=== PATIENT | male | born 1960 | race Caucasian/White ===

== ENCOUNTER 2018-03-07 09:02 | Day surgery (SDC) | payer BC ==
[2018-03-02 10:09] LABS: BASOPHILS % (AUTO) 0.3 % (0-1); LYMPHOCYTES # (AUTO) 1.9 X10'3 (1.1-4.8); LYMPHOCYTES % (AUTO) 38.7 % (21-51); MEAN CORPUSCULAR HEMOGLOBIN 30.8 PG (27.0-31.0); MEAN CORPUSCULAR HGB CONC 34.2 % (33.0-36.5); MEAN CORPUSCULAR VOLUME 90.1 FL (78-98); MONOCYTES # (AUTO) 0.4 X10'3 (0-0.9); MONOCYTES % (AUTO) 7.3 % (2-12); NEUTROPHILS # (AUTO) 2.5 X10'3 (1.8-7.7); NEUTROPHILS % (AUTO) 52.7 % (42-75); PRE OP HEMATOCRIT 44.6 % (42.0-52.0); PRE OP HEMOGLOBIN 15.2 g/dL (14.0-17.9); PRE OP PLATELET COUNT 202 X10'3 (140-440); RED BLOOD COUNT 4.95 X10'6 (4.70-6.10); RED CELL DISTRIBUTION WIDTH 12.7 % (11.5-14.5)
[2018-03-02 10:21] LABS: ALBUMIN 3.8 G/DL (3.4-5.0); ALBUMIN/GLOBULIN RATIO 1.2 (1.1-1.5); ALKALINE PHOSPHATASE 74 IU/L (46-116); BLOOD UREA NITROGEN 19 MG/DL (7-18); BUN/CREATININE RATIO 20.7 (5.4-32.0); CALCIUM 8.9 MG/DL (8.5-10.1); CHLORIDE 105 MMOL/L (99-107); CREATININE 0.92 MG/DL (0.60-1.10); PRE OP ALT 29 U/L (30-65); PRE OP ANION GAP 6 (8-16); PRE OP AST 18 U/L (10-37); PRE OP BILIRUB, TOTAL 0.6 MG/DL (0.0-1.0); PRE OP GLUCOSE 98 MG/DL (70-104); PRE OP POTASSIUM 4.1 MMOL/L (3.4-5.1); PRE OP SODIUM 142 MMOL/L (135-145); TOTAL CARBON DIOXIDE 31.2 MMOL/L (24-32); eGFR 85 ML/MIN
[2018-03-02 10:25] LABS: PRE OP PROTIME 10.4 SECONDS (9.0-12.0)
[~2018-03-07] VITALS: Ht 177.8 cm; Wt 84.1 kg
[2018-03-07] VITALS (18 sets, daily range): BP systolic 120–191; BP diastolic 71–101
[~2018-03-07 09:02] MED LIST: NO HOME MEDS; cefazolin/dext.iso 2gm/100 ML IV ONE; famotidine 20mg tablet PO ONE; ringers solution, lacted 1,000 ML IV SCH; vancomycin inj 1,500 MG in normal saline 300ml IV soln IV ONE
[2018-03-07] MEDS ORDERED: BUPIVAcaine/PF 2.5mg/ml (0.25%) 10ml vial ONE (10:50)
[2018-03-07] MEDS ORDERED: ketorolac trometh. 30mg/ml inj. ONE (11:06)
[2018-03-07] MEDS ORDERED: sevoflurane 250ml liquid IH ONE (11:06)
[2018-03-07] MEDS ORDERED: ePHEDrine 50MG/ML INJ. ONE (11:06)
[2018-03-07] MEDS ORDERED: glycopyrrolate 0.2mg/ml inj ONE (11:06)
[2018-03-07] MEDS ORDERED: midazolam 2 mg/2 ml injection ONE (11:08)
[2018-03-07] MEDS ORDERED: fentaNYL /PF 50mcg/ml 5ml ampule ONE (11:08)
[2018-03-07] MEDS ORDERED: LIDOcaine 2% (20mg/ml) 5ml vial ONE (11:27)
[2018-03-07] MEDS ORDERED: dexamethasone sod phosphate 4mg/ml inj. ONE (11:27)
[2018-03-07] MEDS ORDERED: propofol inj 20 ML IV ONE (11:27)
[2018-03-07] MEDS ORDERED: ondansetron/PF 4mg/2ml inj ONE (13:20)
[2018-03-07] MEDS ORDERED: ringers solution, lacted 1,000 ML IV SCH (13:38)
[2018-03-07] MEDS ORDERED: meperidine/PF 25mg/ml syringe IV PRN ×2 (13:40)
[2018-03-07] MEDS ORDERED: ondansetron/PF 4mg/2ml inj IV PRN ×2 (13:40→14:05)
[2018-03-07] MEDS ORDERED: proCHLORperazine 10 MG/2 ml inj IV PRN (13:40)
[2018-03-07] MEDS ORDERED: morphine 4 MG/ML inj SYRINge IV PRN (13:40)
[2018-03-07] MEDS ORDERED: HYDROcodone/acetaminophen 10/325mg tab PO PRN (14:05)
[2018-03-07] MEDS ORDERED: diphenhydrAMINE 25mg capsule PO PRN ×2 (14:05)
[2018-03-07] MEDS ORDERED: magnesium hydroxide 30ml (MOM) UD suspension PO PRN (14:05)
[2018-03-07] MEDS ORDERED: acetaminophen 325mg tablet PO PRN (14:05)
[2018-03-07] MEDS ORDERED: bisacodyl 10mg suppository rectal RC PRN (14:05)
[2018-03-07] MEDS: meperidine/PF 25mg/ml syringe IV PRN ×3 (14:08→15:01)
[2018-03-07] MEDS: morphine 4 MG/ML inj SYRINge IV PRN (14:43)
[2018-03-07] MEDS: HYDROcodone/acetaminophen 10/325mg tab PO PRN ×2 (16:03→20:52)
[2018-03-07] MEDS: ceFAZolin 1GM/D5W- ADD-VANTAGE 50 ML IV SCH (17:01)
[2018-03-07] MEDS: potassium Cl 20mEq in NS 1,000 ML IV SCH (19:19)
[2018-03-07] MEDS: ketorolac trometh. 30mg/ml inj. IV SCH (19:20)
[2018-03-07] MEDS ORDERED: vancomycin/NS 1 GM ADD-VANTAGE 250 ML IV SCH (20:00)
[2018-03-07] MEDS ORDERED: sennosides 8.6mg tablet PO SCH (21:00)
[2018-03-07] MEDS: HYDROmorphone 1 mg/ml syringe IV PRN (22:48)
[2018-03-08] MEDS: meperidine/PF 25mg/ml syringe IV PRN ×2 (00:08→02:47)
[2018-03-08] MEDS: ceFAZolin 1GM/D5W- ADD-VANTAGE 50 ML IV SCH (00:20)
[2018-03-08] MEDS: HYDROcodone/acetaminophen 10/325mg tab PO PRN ×2 (01:49→05:49)
[2018-03-08] MEDS: ketorolac trometh. 30mg/ml inj. IV SCH ×2 (01:49→08:10)
[2018-03-08 02:00] VITALS: BP 119/77
[2018-03-08] MEDS: morphine 4 MG/ML inj SYRINge IV PRN (02:48)
[2018-03-08] MEDS: potassium Cl 20mEq in NS 1,000 ML IV SCH (03:21)
[2018-03-08] MEDS ORDERED: HYDR-3972 PO (07:55)
[2018-03-08 08:49] VITALS: BP 141/83
[2018-03-08] MEDS: HYDROmorphone 1 mg/ml syringe IV PRN (09:51)
== END 2018-03-08 10:22 | disposition home or self-care (01) ==
LOC: PAS 09:02 → ORTHO 4S 14:01 → PAS 03-08 10:22
PROVIDERS: ATTEND Orthopaedic Surgery
DX: M75.122 Complete rotator cuff tear or rupture of left shoulder, not specified as traumatic (principal); M19.012 Primary osteoarthritis, left shoulder; M75.22 Bicipital tendinitis, left shoulder; G89.29 Other chronic pain; I45.19 Other right bundle-branch block; Z72.89 Other problems related to lifestyle; Z79.891 Long term (current) use of opiate analgesic; Z98.890 Other specified postprocedural states; Z79.899 Other long term (current) drug therapy
CPT/HCPCS: 23120; 23130; 23412; 23430; 36415; 80053; 85025; 85610; 85730; 93005; 97110; 97116; 97162; A6223; A6253; A6449; C1713; J0690; J1100; J1170; J1885; J2001; J2175; J2250; J2270; J2405; J2704; J3010; J3370; J3490; J7120; A4565; A7000; G0378

== ENCOUNTER 2020-12-29 07:47 | Emergency (ER) | payer BC ==
[~2020-12-29] VITALS: Ht 177.8 cm; Wt 84.1 kg
[~2020-12-29 07:47] MED LIST changes: +HYDR-3972 PO; -cefazolin/dext.iso 2gm/100 ML IV ONE; -famotidine 20mg tablet PO ONE; -ringers solution, lacted 1,000 ML IV SCH; -vancomycin inj 1,500 MG in normal saline 300ml IV soln IV ONE
[2020-12-29 08:22] VITALS: BP 114/80
[2020-12-29] MEDS ORDERED: DOBUTamine-DoBUTrex 500mg/D5W 250 ML IV SCH ×2 (09:45)
[2020-12-29] MEDS ORDERED: CASIRIVIMAB/IMDEVIMAB inject. 10 ML in normal saline 100ml IV soln 100 ML IV ONE (09:50)
[2020-12-29 10:13] LABS: D-DIMER 0.42 MG/L FEU (0-0.50)
[2020-12-29 10:25] LABS: C-REACTIVE PROTEIN 1.53 MG/DL (0.0-0.5)
[2020-12-29] MEDS ORDERED: DEXA6TAB6 PO (10:58)
== END 2020-12-29 11:55 | disposition home or self-care (01) ==
LOC: ER 07:47
DX: U07.1 COVID-19 (principal); R06.02 Shortness of breath; Z79.899 Other long term (current) drug therapy
CPT/HCPCS: 36415; 71045; 82728; 83615; 84145; 85379; 85384; 86140; 99284; M0243; Q0244